=== PATIENT | male | born 1970 | race Two or more races ===

== ENCOUNTER 2022-11-15 09:47 | Emergency (ER) | payer OTHER ==
[~2022-11-15] VITALS: Ht 170.2 cm; Wt 76.0 kg
[2022-11-15 10:49] VITALS: BP 127/81; PULSE 56; RESP 20; TEMP 97.4; O2SAT 98
[2022-11-15] MEDS ORDERED: KETOROLAC TROMETH 60MG/2ML VIAL IM ONE (11:00)
[2022-11-15] MEDS ORDERED: IBUP-1456 PO (11:10)
== END 2022-11-15 11:17 | disposition home or self-care (01) ==
LOC: ER 09:47
DX: S93.401A Sprain of unspecified ligament of right ankle, initial encounter (principal); W10.8XXA Fall (on) (from) other stairs and steps, initial encounter; Y93.39 Activity, other involving climbing, rappelling and jumping off; Y92.89 Other specified places as the place of occurrence of the external cause; Y99.8 Other external cause status
CPT/HCPCS: 73610; 99283; J1885

== ENCOUNTER 2022-11-17 10:19 | Emergency (ER) | payer OTHER ==
[~2022-11-17] VITALS: Ht 170.2 cm; Wt 76.8 kg
[~2022-11-17 10:19] MED LIST: IBUP-1456 PO
[2022-11-17 10:27] VITALS: BP 150/91; PULSE 65; RESP 16
[2022-11-17 11:12] VITALS: O2SAT 97
== END 2022-11-17 11:14 | disposition home or self-care (01) ==
LOC: ER 10:19
DX: S93.401D Sprain of unspecified ligament of right ankle, subsequent encounter (principal); X58.XXXD Exposure to other specified factors, subsequent encounter